=== PATIENT | male | born 1975 | race Caucasian/White ===

== ENCOUNTER 2020-12-25 12:36 | Outpatient (REF) | payer OTHER, SELFPAY ==
[2020-12-25 22:12] LABS: HCT 46.5 % (40.0-50.0); MCH 29.9 pg (27.0-33.0); MCHC 34.4 % (32.0-36.0); MCV 86.8 fL (80-95); MPV 10.8 fL (8.0-11.0); Platelet Count 271 10^3/uL (130-400); RBC 5.36 10^6/uL (4.36-5.78); RDW 12.9 % (11.8-14.1); RDW-SD 40.6 fL; WBC 7.06 10^3/uL (4.4-10.8)
[2020-12-25 22:36] LABS: ALT 58 U/L (16-63); AST 30 U/L (15-37); Albumin 3.9 g/dL (3.4-5.0); Alkaline Phosphatase 76 U/L (46-116); Anion Gap 12.2 mmol/L (3-11); BUN 15 mg/dL (7-18); Bilirubin, Total 0.4 mg/dL (0.2-1.0); CO2 25.8 mmol/L (21.0-32.0); CREATININE 0.9 mg/dL (0.70-1.30); Calcium 9.6 mg/dL (8.5-10.1); Calculated LDL 183 mg/dL (<100); Chloride 103 mmol/L (98-107); Cholesterol 266 mg/dL (<200); Glucose 193 mg/dL (74-106); HDL Cholesterol 49 mg/dL (40-60); Potassium 4.5 mmol/L (3.5-5.1); Sodium 141 mmol/L (136-145); Total Protein 7.4 g/dL (6.4-8.2); Triglyceride 170 mg/dL (<150)
[2020-12-25 22:49] LABS: Hemoglobin A1C 10.8 % (<5.7)
== END 2020-12-25 12:37 | disposition home or self-care (01) ==
LOC: NCHCN 12:36
PROVIDERS: PCP Nurse Practitioner Community Health; Visit Provider Nurse Practitioner Community Health
DX: Z13.220 Encounter for screening for lipoid disorders (principal); R73.9 Hyperglycemia, unspecified; Z13.1 Encounter for screening for diabetes mellitus
CPT/HCPCS: 80053; 80061; 85027; 83036

== ENCOUNTER 2021-04-02 12:46 | Outpatient (REF) | payer OTHER, SELFPAY ==
[2021-04-02 20:10] LABS: COMMENT (LAB VIEW ONLY) 39.01 mg/dL; Microalb ug/mg Crea 6.9 ug/mg Cr
== END 2021-04-02 12:47 | disposition home or self-care (01) ==
LOC: NCHCN 12:46
PROVIDERS: Visit Provider Nurse Practitioner Community Health
DX: E11.3293 Type 2 diabetes mellitus with mild nonproliferative diabetic retinopathy without macular edema, bilateral (principal)
CPT/HCPCS: 82043; 82570

== ENCOUNTER 2021-06-25 09:07 | Outpatient (REF) | payer OTHER, SELFPAY ==
[2021-06-25 20:41] LABS: Calculated LDL 80 mg/dL (<100); Cholesterol 154 mg/dL (<200); HDL Cholesterol 49 mg/dL (40-60); Triglyceride 128 mg/dL (<150)
[2021-06-26 19:40] LABS: PSA, Screening 0.2 ng/mL (0.0-2.5)
== END 2021-06-25 09:08 | disposition home or self-care (01) ==
LOC: NCHCN 09:07
PROVIDERS: Visit Provider Nurse Practitioner Community Health
DX: E78.5 Hyperlipidemia, unspecified (principal); Z12.5 Encounter for screening for malignant neoplasm of prostate; Z80.3 Family history of malignant neoplasm of breast
CPT/HCPCS: 80061; 84153

== ENCOUNTER 2021-10-07 15:09 | Outpatient (REF) | payer OTHER, SELFPAY ==
[2021-10-07 22:06] LABS: Anion Gap 8.9 mmol/L (3-11); BUN 19 mg/dL (7-18); CO2 26.1 mmol/L (21.0-32.0); CREATININE 0.9 mg/dL (0.70-1.30); Calcium 9.5 mg/dL (8.5-10.1); Chloride 103 mmol/L (98-107); Glucose 134 mg/dL (74-106); Sodium 138 mmol/L (136-145)
== END 2021-10-07 15:10 | disposition home or self-care (01) ==
LOC: NCHCN 15:09
PROVIDERS: Visit Provider Nurse Practitioner Family
DX: E11.3293 Type 2 diabetes mellitus with mild nonproliferative diabetic retinopathy without macular edema, bilateral (principal)
CPT/HCPCS: 80048

== ENCOUNTER 2021-11-10 16:16 | Outpatient (REF) | payer OTHER, SELFPAY ==
[2021-11-10 16:36] LABS: Anion Gap 9.3 mmol/L (3-11); BUN 18 mg/dL (7-18); CO2 26.7 mmol/L (21.0-32.0); Calcium 9.4 mg/dL (8.5-10.1); Chloride 103 mmol/L (98-107); Glucose 132 mg/dL (74-106); Potassium 4.3 mmol/L (3.5-5.1); Sodium 139 mmol/L (136-145)
== END 2021-11-10 16:17 | disposition home or self-care (01) ==
LOC: NCHCN 16:16
PROVIDERS: Nurse Practitioner Family; Visit Provider Internal Medicine Hematology & Oncology
DX: E11.3293 Type 2 diabetes mellitus with mild nonproliferative diabetic retinopathy without macular edema, bilateral (principal); Z86.79 Personal history of other diseases of the circulatory system
CPT/HCPCS: 80048

== ENCOUNTER 2022-04-14 16:46 | Outpatient (REF) | payer OTHER, SELFPAY ==
[2022-04-14 21:19] LABS: COMMENT (LAB VIEW ONLY) 71.96 mg/dL; Microalb ug/mg Crea 3.8 ug/mg Cr
== END 2022-04-14 16:47 | disposition home or self-care (01) ==
LOC: NCHCN 16:46
PROVIDERS: Visit Provider Nurse Practitioner Family
DX: E11.3293 Type 2 diabetes mellitus with mild nonproliferative diabetic retinopathy without macular edema, bilateral (principal)
CPT/HCPCS: 82043; 82570

== ENCOUNTER 2022-08-03 17:46 | Outpatient (REF) | payer MEDICAID, SELFPAY ==
[2022-08-03 22:41] LABS: ALT 26 U/L (16-63); AST 14 U/L (15-37); Alkaline Phosphatase 83 U/L (46-116); BUN 15 mg/dL (7-18); Bilirubin, Total 0.4 mg/dL (0.2-1.0); CREATININE 0.9 mg/dL (0.70-1.30); Calcium 9.2 mg/dL (8.5-10.1); Calculated LDL 60 mg/dL (<100); Chloride 102 mmol/L (98-107); Cholesterol 152 mg/dL (<200); Estimated GFR 106.01 (mL/min/1.73m2); Glucose 144 mg/dL (74-106); HDL Cholesterol 59 mg/dL (40-60); Potassium 4.3 mmol/L (3.5-5.1); Sodium 138 mmol/L (136-145); Total Protein 7.8 g/dL (6.4-8.2); Triglyceride 168 mg/dL (<150)
== END 2022-08-03 17:47 | disposition home or self-care (01) ==
LOC: NCHCN 17:46
PROVIDERS: Visit Provider Nurse Practitioner Family
DX: E78.5 Hyperlipidemia, unspecified (principal); I10 Essential (primary) hypertension; E11.3293 Type 2 diabetes mellitus with mild nonproliferative diabetic retinopathy without macular edema, bilateral
CPT/HCPCS: 80053; 80061

== ENCOUNTER 2023-05-05 14:26 | Outpatient (REF) | payer MEDICAID, SELFPAY ==
[2023-05-05 22:31] LABS: COMMENT (LAB VIEW ONLY) 103.33 mg/dL; Microalb ug/mg Crea 4.9 ug/mg Cr
== END 2023-05-05 14:27 | disposition home or self-care (01) ==
LOC: NCHCN 14:26
PROVIDERS: Visit Provider Nurse Practitioner Family
DX: E11.9 Type 2 diabetes mellitus without complications (principal)
CPT/HCPCS: 82043; 82570

== ENCOUNTER 2023-06-17 11:02 | Outpatient (REF) | payer MEDICAID, SELFPAY ==
[2023-06-17 15:04] LABS: Anion Gap 10.8 mmol/L (3-11); BUN 15 mg/dL (7-18); CO2 24.2 mmol/L (21.0-32.0); Calcium 9.5 mg/dL (8.5-10.1); Chloride 103 mmol/L (98-107); Estimated GFR 92.84 (mL/min/1.73m2); Glucose 164 mg/dL (74-106); Sodium 138 mmol/L (136-145)
== END 2023-06-17 11:03 | disposition home or self-care (01) ==
LOC: NCHCN 11:02
PROVIDERS: Visit Provider Nurse Practitioner Family
DX: I10 Essential (primary) hypertension (principal)
CPT/HCPCS: 80048

== ENCOUNTER 2023-11-18 14:39 | Outpatient (REF) | payer MEDICAID, SELFPAY ==
[2023-11-18 14:40] LABS: Hemoglobin A1C 5.8 % (<5.7)
== END 2023-11-18 14:40 | disposition home or self-care (01) ==
LOC: NCHCN 14:39
PROVIDERS: Referring Provider Nurse Practitioner Family; Visit Provider Nurse Practitioner Family
DX: E11.3292 Type 2 diabetes mellitus with mild nonproliferative diabetic retinopathy without macular edema, left eye (principal)
CPT/HCPCS: 83036

== ENCOUNTER 2024-05-19 14:38 | Outpatient (REF) | payer MEDICAID, SELFPAY ==
[2024-05-19 15:18] LABS: Hemoglobin A1C 6.9 % (<5.7)
[2024-05-19 15:28] LABS: ALT 30 U/L (16-63); AST 26 U/L (15-37); Alkaline Phosphatase 80 U/L (46-116); Anion Gap 8.6 mmol/L (3-11); BUN 23 mg/dL (7-18); Bilirubin, Total 0.69 mg/dL (0.2-1.0); CO2 25.4 mmol/L (21.0-32.0); CREATININE 0.9 mg/dL (0.70-1.30); Calcium 9.1 mg/dL (8.5-10.1); Calculated LDL 56 mg/dL (<100); Chloride 105 mmol/L (98-107); Cholesterol 133 mg/dL (<200); Glucose 129 mg/dL (74-106); HDL Cholesterol 58 mg/dL (40-60); Potassium 4.3 mmol/L (3.5-5.1); Sodium 139 mmol/L (136-145); Total Protein 7.4 g/dL (6.4-8.2); Triglyceride 95 mg/dL (<150)
== END 2024-05-19 14:39 | disposition home or self-care (01) ==
LOC: NCHCN 14:38
PROVIDERS: PCP Nurse Practitioner Family; Visit Provider Nurse Practitioner Family
DX: E13.42 Other specified diabetes mellitus with diabetic polyneuropathy (principal); E78.5 Hyperlipidemia, unspecified
CPT/HCPCS: 80053; 80061; 83036

== ENCOUNTER 2024-05-29 18:32 | Outpatient (REF) | payer MEDICAID, SELFPAY ==
[2024-05-29 22:42] LABS: COMMENT (LAB VIEW ONLY) 124.95 mg/dL
== END 2024-05-29 18:33 | disposition home or self-care (01) ==
LOC: NCHCN 18:32
PROVIDERS: PCP Nurse Practitioner Family; Visit Provider Nurse Practitioner Family
DX: E13.42 Other specified diabetes mellitus with diabetic polyneuropathy (principal)
CPT/HCPCS: 82043; 82570

== ENCOUNTER 2024-08-28 09:05 | Outpatient (REF) | payer MEDICAID, SELFPAY ==
[2024-08-28 15:58] LABS: COMMENT (LAB VIEW ONLY) 56.63 mg/dL; Microalb ug/mg Crea 5.8 ug/mg Cr
== END 2024-08-28 09:06 | disposition home or self-care (01) ==
LOC: NCHCN 09:05
PROVIDERS: PCP Nurse Practitioner Family; Visit Provider Nurse Practitioner Family
DX: E13.42 Other specified diabetes mellitus with diabetic polyneuropathy (principal)
CPT/HCPCS: 82043; 82570

== ENCOUNTER 2025-05-22 16:00 | Outpatient (REF) | payer BC, SELFPAY ==
[2025-05-22 15:51] LABS: HCT 41.3 % (40.0-50.0); HGB 14.3 g/dL (13.5-17.5); MCH 30.1 pg (27.0-33.0); MCHC 34.6 % (32.0-36.0); MCV 87 fL (80-95); MPV 10.2 fL (8.0-11.0); Platelet Count 217 10^3/uL (130-400); RBC 4.75 10^6/uL (4.36-5.78); RDW 12.9 % (11.8-14.1); RDW-SD 40.9 fL; WBC 7.13 10^3/uL (4.4-10.8)
[2025-05-22 16:13] LABS: ALT 25 U/L (16-63); AST 19 U/L (15-37); Albumin 3.7 g/dL (3.4-5.0); Alkaline Phosphatase 81 U/L (46-116); Anion Gap 8.5 mmol/L (3-11); BUN 15 mg/dL (7-18); Bilirubin, Total 0.5 mg/dL (0.2-1.0); CO2 28.5 mmol/L (21.0-32.0); Calcium 9.0 mg/dL (8.5-10.1); Calculated LDL 70 mg/dL (<100); Chloride 103 mmol/L (98-107); Cholesterol 163 mg/dL (<200); Estimated GFR 91.69 (mL/min/1.73m2); Glucose 158 mg/dL (74-106); HDL Cholesterol 60 mg/dL (>or=40); Potassium 4.2 mmol/L (3.5-5.1); Sodium 140 mmol/L (136-145); Total Protein 7.2 g/dL (6.4-8.2); Triglyceride 165 mg/dL (<150)
[2025-05-22 17:16] LABS: Hemoglobin A1C 7.3 % (<5.7)
== END 2025-05-22 16:01 | disposition home or self-care (01) ==
LOC: NCHCN 16:00
PROVIDERS: PCP Nurse Practitioner Family; Visit Provider Nurse Practitioner Family
DX: Z00.00 Encounter for general adult medical examination without abnormal findings (principal); E11.319 Type 2 diabetes mellitus with unspecified diabetic retinopathy without macular edema; I10 Essential (primary) hypertension
CPT/HCPCS: 80053; 80061; 85027; 83036

== ENCOUNTER 2025-08-28 19:02 | Outpatient (REF) | payer BC, SELFPAY | END 2025-08-28 19:03 | disposition home or self-care (01) | LOC: NCHCN 19:02 | PROVIDERS: PCP Nurse Practitioner Family; Visit Provider Nurse Practitioner Family | DX: E13.42 Other specified diabetes mellitus with diabetic polyneuropathy (principal) | CPT/HCPCS: 82043; 82570 ==